=== PATIENT | female | born 1995 | race Caucasian/White ===

== ENCOUNTER 2018-11-11 17:56 | Emergency (ER) | payer BC ==
[~2018-11-11] VITALS: Ht 175.3 cm; Wt 77.3 kg
[2018-11-11 18:00] VITALS: BP 162/99; TEMP 98.9
[2018-11-11] MEDS ORDERED: BIRTH CONTROL (19:22)
[2018-11-11 19:56] LABS: BASO % 0.2 % (0.0-2.0); EOS % 0.1 % (0-4.0); GRAN # 5.7 (1.4-6.5); GRAN % 69.9 % (42.2-75.2); HEMATOCRIT 40.9 % (37.0-47.0); HEMOGLOBIN 13.7 g/dl (12.5-16.0); LYMPH % 24.2 % (20.0-51.0); MEAN CELL VOLUME 87 fl (80.0-100.0); MEAN CORPUSCULAR HEMOGLOBIN 29 pg (27.0-31.0); MEAN CORPUSCULAR HGB CONC 34 g/dl (33.0-37.0); MEAN PLATELET VOLUME 9.7 fl (7.4-10.4); MONO # 0.4 (0.1-0.6); MONO % 5.4 % (1.7-9.3); PLATELET COUNT 287 K/mm3 (130-400); REDCELL DISTRIBUTION WIDTH-CV 12.3 % (11.5-14.5)
[2018-11-11 19:59] LABS: ALANINE AMINOTRANSFERASE 10 U/L (9-52); ALBUMIN 4.8 gm/dL (3.5-5.0); ALKALINE PHOSPHATASE 110 U/L (50-136); ANION GAP 14 mmol/L (7-16); AST,SGOT 22 U/L (15-37); BILIRUBIN,TOTAL 0.9 mg/dL (0.0-1.0); BLOOD UREA NITROGEN 8 mg/dL (7-17); CALCIUM 10.2 mg/dL (8.4-10.2); CARBON DIOXIDE 23 mmol/L (22-30); CHLORIDE 105 mmol/L (98-107); CREATININE, serum 0.73 (0.52-1.25); GLUCOSE 84 mg/dL (74-106); POTASSIUM 3.9 mmol/L (3.4-5.0); SODIUM 142 mmol/L (137-145); TOTAL PROTEIN 8.3 gm/dL (6.4-8.2)
[2018-11-11 20:12] LABS: TROPONIN-I < 0.012 ng/mL (0.000-0.035)
[2018-11-11] MEDS ORDERED: ATIVAN 0.50.5 MG/TAB PO (21:08)
[2018-11-11 21:51] VITALS: PULSE 92
== END 2018-11-11 21:51 | disposition home or self-care (01) ==
LOC: COL.ER 17:56
PROVIDERS: Emergency Medicine
DX: R00.0 Tachycardia, unspecified (principal); F32.9 Major depressive disorder, single episode, unspecified; F41.9 Anxiety disorder, unspecified; Z90.49 Acquired absence of other specified parts of digestive tract